=== PATIENT | male | born 1935 ===

== ENCOUNTER 2017-03-22 15:04 | Emergency (ER) | payer MEDICARE, OTHER ==
[2017-03-22 15:05] VITALS: BMI 47.7
--- NOTE | 2017-03-22 15:31 | C.PDOC ---
History Of Present Illness 81 y/o male presents to ED with complaints of left lower back pain with radiation down to leg for x1 week. Patient denies numbness, weakness fall/ injuries or urinary symptoms. Over the counter medications have been taken but no relief. Patient states in the past episode of symptoms have occurred. No other complaints at this time Time Seen by Provider: 03/22/17 15:20 Chief Complaint (Nursing): Male Genitourinary History Per: Patient History/Exam Limitations: no limitations Onset/Duration Of Symptoms: Days Current Symptoms Are (Timing): Still Present Past Medical History Reviewed: Historical Data, Nursing Documentation, Vital Signs Vital Signs: Last Vital Signs Temp 97.5 F L 03/22/17 18:00 Pulse 63 03/22/17 18:00 Resp 18 03/22/17 18:00 BP 142/73 03/22/17 18:00 Pulse Ox 96 03/22/17 18:00 - Medical History PMH: Anemia, Arthritis, Colonic Polyps, HTN, Hypercholesterolemia, Chronic Kidney Disease, Sleep Apnea (USES C PAP) Surgical History: Coronary Stent - [facility] Procedures MYRINGOTOMY W INTUBATION (06/04/15) Family History: States: Unknown Family Hx - Social History Hx Tobacco Use: Yes (former smoker) Hx Alcohol Use: No Hx Substance Use: No - Immunization History Hx Tetanus Toxoid Vaccination: No Hx Influenza Vaccination: No Hx Pneumococcal Vaccination: No Review Of Systems Constitutional: Negative for: Fever, Chills Respiratory: Negative for: Shortness of Breath Gastrointestinal: Negative for: Nausea, Vomiting, Diarrhea Musculoskeletal: Positive for: Back Pain (Left lower back pain) Skin: Negative for: Rash Neurological: Positive for: Weakness. Negative for: Headache, Dizziness Physical Exam - Physical Exam Appears: Non-toxic, No Acute Distress Skin: Warm, No Dry, No Diaphoretic, No Rash Head: Atraumatic, Normacephalic Eye(s): bilateral: Normal Inspection, PERRL, EOMI Oral Mucosa: Moist Neck: Normal ROM Chest: Symmetrical Cardiovascular: Rhythm Regular Respiratory: Normal Breath Sounds, No Rales, No Rhonchi, No Wheezing Gastrointestinal/Abdominal: Soft, No Tenderness, No Guarding, No Rebound, Other (Obese abdomen) Back: No CVA Tenderness, No Vertebral Tenderness, No Decreased ROM, Paraspinal Tenderness (Mild tenderness) Extremity: Normal ROM, No Tenderness, No Pedal Edema, No Deformity, No Swelling Neurological/Psych: Oriented x3, Normal Speech, Normal Cognition, Other (No focal deficits) Gait: Steady ED Course And Treatment O2 Sat by Pulse Oximetry: 98 Medical Decision Making Medical Decision Making: Impression: back pain, likely sciatica. based on history and exam, xray not indicated as pain is atraumatic Plan: Toradol and Valium, UA Progress: Upon reevaluation patient reports back pain has much improved. Patient is ambulatory with minimal signs of discomfort and feels comfortable going home, asking for Rx. Rx sent to pharmacy. Disposition Counseled Patient/Family Regarding: Diagnosis, Need For Followup, Rx Given - Disposition Referrals: Lesley Jack MD [Staff Provider] - Disposition: HOME/ ROUTINE Disposition Time: 18:00 Condition: IMPROVED Additional Instructions: Sarika recetas envi[facility] Por favor tome gini necesario para el dolor Siga con carey mdico Prescriptions: Lidocaine 4% [Lidocaine 4% 50 mL Topical (OR)] 50 ml TOP Q12 PRN #1 bottle PRN Reason: Pain, Moderate (4-7) Methocarbamol [Robaxin] 750 mg PO Q8 #21 tab Piroxicam 10 mg PO DAILY #14 cap Instructions: Sciatica (ED) Print Language: INDONESIAN - POA Present On Arrival: None - Clinical Impression Clinical Impression: Low back pain, Sciatica - PA / DATA WAREHOUSE DEVELOPER / Resident Statement MD/DO has reviewed & agrees with the documentation as recorded. - Scribe Statement The provider has reviewed the documentation as recorded by the Montrellibkelsea Monae All medical record entries made by the Lurdes were at my direction and personally dictated by me. I have reviewed the chart and agree that the record accurately reflects my personal performance of the history, physical exam, medical decision making, and the department course for this patient. I have also personally directed, reviewed, and agree with the discharge instructions and disposition.
[2017-03-22 17:26] LABS: RBC URINE < 1 /hpf (0-3); URINE BACTERIA RARE (<OCC); URINE BILIRUBIN NEGATIVE (NEGATIVE); URINE BLOOD NEGATIVE (NEGATIVE); URINE COLOR Yellow (YELLOW); URINE GLUCOSE (UA) NORMAL (Normal); URINE KETONE NEGATIVE (NEGATIVE); URINE LEUKOCYTE ESTERASE NEG Leu/uL (Negative); URINE PROTEIN 2+ mg/dL (NEGATIVE); URINE UROBILINOGEN NORMAL mg/dL (0.2-1.0); WBC URINE < 1 /hpf (0-5)
[2017-03-22 18:01] VITALS: BP 142/73; PULSE 63; RESP 18; TEMP 97.5
[2017-03-23 07:25] VITALS: O2SAT 98
== END 2017-03-22 18:01 | disposition home or self-care (01) ==
LOC: C.ER 15:04
DX: M54.42 Lumbago with sciatica, left side (principal)
CPT/HCPCS: 81001; 96372; 99285; J1885

== ENCOUNTER 2018-01-26 09:53 | Emergency (ER) | payer MEDICARE, OTHER ==
[2018-01-26 09:53] VITALS: BMI 47.7
[2018-01-26 10:03] VITALS: PULSE 81; RESP 18; TEMP 98.2; O2SAT 96
[2018-01-26] MEDS ORDERED: Lidocaine 5% Patch TD STA (10:40)
--- NOTE | 2018-01-26 10:46 | C.PDOC ---
History Of Present Illness 82 year old male presents to the emergency department accompanied by his family with complaints of pain in his right foot. Patient reports the pain has existed for the past four days, and reports that it is getting worse. He reports that he cannot stand without holding onto something. Patient reports he took Tylenol and applied a topical rub, which didn't help his pain. Patient denies wearing any new shoes, stating that he has special orthopedic shoes. Patient denies trauma, falls, and drinking. Patient states he is a former smoker. Patient's past medical history includes diabetes, hypertension, and an enlarged prostate. Patient's past surgical history includes a coronary stent placement. Patient states he visits a salvager in [place], and his primary care doctor is Dr. Watters. Time Seen by Provider: 01/26/18 10:11 Chief Complaint (Nursing): Lower Extremity Problem/Injury History Per: Patient, Family (Son) History/Exam Limitations: no limitations Onset/Duration Of Symptoms: Days (4) Current Symptoms Are (Timing): Worse - Ankle/Foot Description Of Injury: denies: Fell, Struck With Object, Other (trauma) Currently Unable To: Bear Weight, Bend Or Move Past Medical History Reviewed: Historical Data, Nursing Documentation, Vital Signs Vital Signs: Last Vital Signs Temp 98.2 F 01/26/18 09:59 Pulse 81 01/26/18 09:59 Resp 18 01/26/18 09:59 BP 146/82 01/26/18 11:32 Pulse Ox 96 01/26/18 12:03 - Medical History PMH: Anemia, Arthritis, Colonic Polyps, HTN, Hypercholesterolemia, Chronic Kidney Disease, Sleep Apnea (USES C PAP) Surgical History: Coronary Stent - [facility] Procedures MYRINGOTOMY W INTUBATION (06/04/15) Family History: States: Unknown Family Hx - Social History Hx Tobacco Use: Yes (former smoker) Hx Alcohol Use: No Hx Substance Use: No - Immunization History Hx Tetanus Toxoid Vaccination: No Hx Influenza Vaccination: Yes Hx Pneumococcal Vaccination: No Review Of Systems Except As Marked, All Systems Reviewed And Found Negative. Musculoskeletal: Positive for: Foot Pain Physical Exam - Physical Exam Appears: Well, Non-toxic Skin: Normal Color Head: Atraumatic, Normacephalic Eye(s): bilateral: Normal Inspection Ear(s): Bilateral: Normal Nose: Normal Oral Mucosa: Moist Tongue: Normal Appearing Throat: Normal Neck: Normal, Supple Chest: Symmetrical Cardiovascular: Rhythm Regular Respiratory: Normal Breath Sounds Extremity: Tenderness (noted at top of right foot. ), No Swelling, Other (pain is worse with palpation. ) Neurological/Psych: Oriented x3, Normal Speech, Normal Cognition ED Course And Treatment O2 Sat by Pulse Oximetry: 96 (RA) Pulse Ox Interpretation: Normal - Radiology CXR: Interpreted by Me, Viewed By Me - Other Rad Foot X-Ray: Interpreted by Me, Viewed By Me, Read By Radiologist Interpretation: No evidence of acute displaced fracture nor dislocation. Consider followup MRI if symptoms persist or worsen. Medical Decision Making Medical Decision Making: Plan: * Lidoderm 5% * Tylenol 975 mg PO * XR Right Foot 3 Views Foot XR Impression: No evidence of acute displaced fracture nor dislocation. Consider followup MRI if symptoms persist or worsen. Disposition Counseled Patient/Family Regarding: Studies Performed, Diagnosis - Disposition Disposition: HOME/ ROUTINE Disposition Time: 11:19 Condition: FAIR Additional Instructions: Mr. Guadalupe, thank you for letting us take care of you today. Return to the ER if your symptoms worsen, or if any problems. Take the medication listed below as prescribed. You already have a foot doctor in [place]. Please follow up with your foot doctor next week for a re-evaluation. Prescriptions: Acetaminophen [Tylenol 325mg tab] 3 tab PO Q6 PRN #30 tab PRN Reason: Pain, Moderate (4-7) Lidocaine 5% [Lidoderm] 1 ea TD Q12 #14 patch Instructions: Osteoarthritis Forms: [employer] (Samoan) Print Language: MAORI - Clinical Impression Clinical Impression: Arthritis, Foot pain, right - Scribe Statement The provider has reviewed the documentation as recorded by the Scribe (Diogo Gant) Provider Attestation: All medical record entries made by the Scribe were at my direction and personally dictated by me. I have reviewed the chart and agree that the record accurately reflects my personal performance of the history, physical exam, medical decision making, and the department course for this patient. I have also personally directed, reviewed, and agree with the discharge instructions and disposition.
[2018-01-26] MEDS ORDERED: Lidocaine 5% Patch TD ONE (10:51)
[2018-01-26 11:33] VITALS: BP 146/82
--- NOTE | 2018-01-26 14:35 | RAD ---
PROCEDURE: Right Foot Radiographs. HISTORY: Right foot pain x 4 days but no trauma COMPARISON: None. FINDINGS: BONES: No evidence of acute displaced fracture nor dislocation. . JOINTS: Joint spaces relatively preserved. SOFT TISSUES: Normal. OTHER FINDINGS: None. IMPRESSION: No evidence of acute displaced fracture nor dislocation. Consider followup MRI if symptoms persist or worsen.
== END 2018-01-26 11:35 | disposition home or self-care (01) ==
LOC: C.ER 09:53
DX: M19.071 Primary osteoarthritis, right ankle and foot (principal); M79.671 Pain in right foot